=== PATIENT | male | born 1985 | race Caucasian/White ===

== ENCOUNTER 2017-05-24 13:25 | Inpatient (IN) | payer MEDICARE, MEDICAID ==
[~2017-05-24] VITALS: Ht 177.8 cm; Wt 113.4 kg
[~2017-05-24 13:25] MED LIST: ADDERALL10 MG PO; AVPAK AZITHROM250 MG PO; COGENTIN0.5 MG PO; Effexor25 MG PO; GEODON20 MG PO; GEODON40 MG PO; HALDOL PO; KLONOPIN1 MG PO; KLONOPIN2 MG PO; NKHM; PRILOSEC20 M1 PO; RISPERDAL1 MG PO; SEROQUEL25 MG PO; VISTARIL; XANAX2 MG PO; ZOFRAN ODT4 MG SL; [UNRECOGNIZED DRUG - OTHER]
[2017-05-24 13:30] VITALS: BP 168/92
--- NOTE | 2017-05-24 14:40 | NUR ---
PACING AROUND ROOM. GUARDIAN IN ROOM.
[2017-05-24 15:00] LABS: BILIRUBIN NEGATIVE (NEGATIVE); BLOOD TRACE-LYSED (NEGATIVE); CLARITY CLEAR (CLEAR); COLOR YELLOW (YELLOW); GLUCOSE NEGATIVE (NEGATIVE); KETONE NEGATIVE (NEGATIVE); LEUKO ESTERASE NEGATIVE (NEGATIVE); NITRITE NEGATIVE (NEGATIVE); PH 5.5 (5.0-9.0); SPECIFIC GRAVITY <= 1.005 (1.005-1.030); UROBILINOGEN 0.2 E.U./dl (0.2-1.0)
[2017-05-24 15:00] LABS: BASO # 0.1 10*3/uL (0.0-0.1); BASO % 1.2 % (0.0-1.0); EOS # 0.3 10*3/uL (0.0-0.4); EOS % 3.1 % (1.0-4.0); HEMATOCRIT 44.4 % (42.0-52.0); HEMOGLOBIN 15.2 g/dl (14.0-18.0); LYMPH # 2.9 10*3/uL (1.3-4.4); MEAN CELL VOLUME 87.6 fl (80.0-94.0); MEAN CORPUSCULAR HGB CONC 34.2 g/dl (33.0-37.0); MEAN PLATELET VOLUME 9.7 fl (9.6-12.3); MONO # 0.5 10*3/uL (0.1-1.0); MONO % 5.8 % (3.0-9.0); NEUT # 4.4 10*3/uL (2.3-7.9); NEUT % 53.7 % (47.0-73.0); PLATELET COUNT AUTOMATED 246 10*3/uL (130-400); RED BLOOD COUNT 5.07 10*6/uL (4.50-5.90); RED CELL DISTRI WIDTH 14.1 % (0-14.5); WHITE BLOOD COUNT 8.2 10*3/uL (4.8-10.8)
[2017-05-24 15:05] LABS: BACTERIA TRACE; EPITHELIAL CELLS 0-2; RBC 0-2 rbc/hpf (0-2); WBC 0-2 wbc/hpf (0-5)
[2017-05-24 15:09] LABS: URINE AMPHETAMINES < 1000 (1000ng/ml); URINE BARBITURATES < 200 (200ng/ml); URINE BENZODIAZEPINES < 200 (200ng/ml); URINE CANNABINOIDS (THC) < 50 (50ng/ml); URINE COCAINE < 300 (300ng/ml); URINE METHADONE < 300 (300ng/ml); URINE OPIATES < 300 (300ng/ml)
[2017-05-24 15:09] LABS: ACT PARTIAL THROMBO TIME 26.7 SECONDS (20.8-31.5)
[2017-05-24 15:10] LABS: URINE PHENCYCLIDINE < 25 (25ng/ml)
[2017-05-24 15:16] LABS: ALKALINE PHOSPHATASE 106 U/L (45-117); BUN 13 mg/dl (7-24); CHLORIDE 105 mmol/L (98-107); CREATININE 1.23 mg/dL (0.70-1.30); LIPASE 141 U/L (73-393); MAGNESIUM 2.2 mg/dL (1.5-2.1); POTASSIUM 4.4 mmol/L (3.5-5.1); SGOT/AST 77 IU/L (3-35); SGPT/ALT 71 U/L (12-78); SODIUM 140 mmol/L (136-145); TOTAL PROTEIN 7.4 gm/dL (6.4-8.2)
[2017-05-24 15:18] LABS: ACETAMINOPHEN (TYLENOL) < 2.0 ug/ml (10-30); CKMB 6.5 ng/ml (0.5-3.6); ETHYL ALCOHOL < 3.0 mg/dl (<3); TROPONIN I < 0.015 ng/ml (<0.045)
[2017-05-24 15:30] LABS: CPK 1354 U/L (39-308)
--- NOTE | 2017-05-24 16:14 | NUR ---
PT VISITING WITH FIRE ALARM TECHNICIAN. DR CONNOR AT BEDSIDE.
[2017-05-24 17:45] VITALS: BP 124/72
--- NOTE | 2017-05-24 18:01 | NUR ---
32 year old M admitted to room # 520 for stabilization. Reports an addiction to [place] last used THIS MORNING . Compliant with admission procedure. Patient DISPLAYS SYMPTOMS OF anxiety, is unable to sit still, looks about room, HOWERVER able to focus eyes on nurse during interview. See assessment forms for additional information about patient status. DR GIRARD IN TO SEE PT.
--- NOTE | 2017-05-24 18:19 | NUR ---
DR PONCE IN TO SEE PT. PT WANDERING AROUND IN ROOM, COOPERATIVE. FLAT AFFECT.
[2017-05-24] MEDS ORDERED: KLONOPIN1 M1 PO ×2 (18:26)
[2017-05-24] MEDS ORDERED: ZANTAC 150150 MG PO (18:27)
[2017-05-24] MEDS ORDERED: ZYPREXA20 M1 PO (18:28)
[2017-05-24] MEDS ORDERED: HALDOL5 MG PO (18:28)
[2017-05-24] MEDS ORDERED: HALDOL20 MG PO (18:30)
[2017-05-24] MEDS ORDERED: COGENTIN0.5 MG PO (18:30)
--- NOTE | 2017-05-24 18:33 | NUR ---
PTS MED LIST UPDATED WITH [facility], HOWEVER PT IS ADAMANT THAT HE DOES NOT TAKE MOST OF THESE MEDS. PHONED DR VAUGHNOLONES OFFICE TO VERIFY THAT PT IS INDEED ORDERED THESE MEDS. ATTEMPTED TO REACH DR MONTAGUE TO INFORM THAT MED REC MAY NOT BE CORRECT EVEN THOUGH VERIFIED THRU PHARMACY.
--- NOTE | 2017-05-24 19:15 | NUR ---
ERICK MONTANEZ NOTIFIED OF PTS HX OF SUICIDAL ATTEMPTS & FACT THAT PT IS DENYING ANY SUICIAL OR HOMICIDAL THOUGHTS AT PRESENT TIME.
--- NOTE | 2017-05-24 19:18 | NUR ---
SPOKE WITH STAFF AT DR RINALDI'S OFFICE WHO INFORM THIS RN THAT PT IS NO LONGER A PT OF DR MARTINEZ & THAT WE SHOULD CALL [facility] IN [facility]. [phone]. ATTEMPTED TO CALL NUMBER WITH NO SUCCESS.
--- NOTE | 2017-05-24 19:56 | NUR ---
PT GIVEN NICOTROL INHALER PER HIS REQUEST, SEE EMAR. IV INFUSING WITH NO PROBLEM. CALL LIGHT IN REACH. IV started left hand with #22 angiocath after 1 attempts. The IV site was prepped with Chloraprep. Heparin lock attached. IV solution MVI infusing at 150 cc/hr. Sterile dressing applied. Patient tolerated precedure well. Procedure performed according to [facility] policy & procedure. SILVIA BENDER
[2017-05-24 20:00] VITALS: BP 139/98
--- NOTE | 2017-05-24 20:50 | NUR ---
PT MEDICATED WITH NICOTROL INHALER PER HIS REQUEST. SEE EMAR. CALL LIGHT IN REACH.
--- NOTE | 2017-05-24 21:13 | NUR ---
CALLED DR. WOODS MADE AWARE OF CONSULT. HE WILL SEE HIM TOMORROW.
--- NOTE | 2017-05-24 22:05 | NUR ---
PT REQUESTING NICOTROL INHALER, SEE EMAR. ALSO MEDICATED WITH TRAZADONE FOR SLEEP. CALL LIGHT IN REACH.
--- NOTE | 2017-05-24 23:00 | NUR ---
PT TOLERATED ROUTINE LIBRIUM PO PER PRN ORDER, SEE EMAR. NO C/O AT THIS TIME. CALL LIGHT IN REACH.
[2017-05-25] VITALS: BP 137/82
--- NOTE | 2017-05-25 02:48 | NUR ---
PT C/O WITHDRAWAL SYMPTOMS. C/O ANXIETY AND ACHES ALL OVER AND ANXIETY. MEDICATED WITH ZOFRAN, TRAZADONE,ROBAXIN, AND VISTARIL PER PRN ORDER, SEE EMAR. CALL LIGHT IN REACH.
--- NOTE | 2017-05-25 03:50 | NUR ---
RESTING IN BED ON RIGHT SIDE WITH EYES CLOSED. MEDICATION SEEMS TO BE EFFECTIVE. CALL LIGHT IN REACH.
--- NOTE | 2017-05-25 06:00 | NUR ---
PT TOELRATED ROUTINE LIBRIUM SEE EMAR. ALSO REQUESTING NICOTROL INHALER. CALL LIGHT IN REACH.
[2017-05-25 08:00] VITALS: BP 130/80
--- NOTE | 2017-05-25 08:47 | NUR ---
PATIENT ALERT AND ORIENTED X3 SPHERES AND WISHES TO SIGN HIMSELF OUT AMA. PAPER SIGNED. HEPLOCK DISCONTINUED. PT LEFT THE FLOOR. THE PATIENT'S MOTHER THEN CALLED AND STATED SHE IS HIS GUARDIAN AND SHE WANTS HIM TO STAY AFTER HE TOLD HER HE WAS LEAVING. SHE STATED SHE COULD FAX OVER PAPERWORK STATING THIS BUT I LET HER KNOW HE JUST LEFT THE FLOOR. PT STATED HE LIVES A "COUPLE BLOCKS AWAY AND WAS GOING TO WALK HOME."
--- NOTE | 2017-05-25 08:50 | NUR ---
DR BLACK AND NURSING SAS ADMINISTRATOR NOTIFIED THAT PATIENT SIGNED OUT AGAINST MEDICAL ADVICE.
== END 2017-05-25 08:47 | disposition left against medical advice (07) | DRG 894 ==
LOC: ED 13:25 → EDHOLD 16:39 → 5E 16:39 → EDHOLD 16:39 → 5E 17:05
PROVIDERS: Emergency Medicine; ADMIT Internal Medicine
DX: F13.20 Sedative, hypnotic or anxiolytic dependence, uncomplicated (principal); E83.41 Hypermagnesemia; F20.0 Paranoid schizophrenia; Z53.21 Procedure and treatment not carried out due to patient leaving prior to being seen by health care provider; F17.210 Nicotine dependence, cigarettes, uncomplicated; R74.0 Nonspecific elevation of levels of transaminase and lactic acid dehydrogenase [LDH]; Z71.6 Tobacco abuse counseling; Z79.899 Other long term (current) drug therapy; Z72.89 Other problems related to lifestyle

== ENCOUNTER 2018-06-15 11:57 | Emergency (ER) | payer MEDICARE, MEDICAID ==
[~2018-06-15 11:57] MED LIST changes: +HALDOL20 MG PO; +HALDOL5 MG PO; +KLONOPIN1 M1 PO; +ZANTAC 150150 MG PO; +ZYPREXA20 M1 PO
[2018-06-15 12:22] LABS: BILIRUBIN NEGATIVE (NEGATIVE); BLOOD TRACE-INTACT (NEGATIVE); CLARITY CLEAR (CLEAR); COLOR STRAW (YELLOW); GLUCOSE NEGATIVE (NEGATIVE); KETONE NEGATIVE (NEGATIVE); LEUKO ESTERASE NEGATIVE (NEGATIVE); NITRITE NEGATIVE (NEGATIVE); SPECIFIC GRAVITY <= 1.005 (1.005-1.030); UROBILINOGEN 0.2 E.U./dl (0.2-1.0)
[2018-06-15 12:29] LABS: URINE AMPHETAMINES < 1000 (1000ng/ml); URINE BARBITURATES < 200 (200ng/ml); URINE BENZODIAZEPINES < 200 (200ng/ml); URINE CANNABINOIDS (THC) < 50 (50ng/ml); URINE COCAINE < 300 (300ng/ml); URINE METHADONE < 300 (300ng/ml); URINE OPIATES < 300 (300ng/ml)
[2018-06-15 12:30] LABS: EPITHELIAL CELLS 0-2; RBC 0-2 rbc/hpf (0-2); WBC 0-2 wbc/hpf (0-5)
[2018-06-15 12:31] LABS: URINE PHENCYCLIDINE < 25 (25ng/ml)
[2018-06-15 12:41] LABS: BASO % 0.3 % (0.0-1.0); EOS # 0.1 10*3/uL (0.0-0.4); EOS % 0.3 % (1.0-4.0); HEMATOCRIT 45.5 % (42.0-52.0); HEMOGLOBIN 15.9 g/dl (14.0-18.0); LYMPH # 1.6 10*3/uL (1.3-4.4); LYMPH % 10.3 % (27.0-41.0); MEAN CELL VOLUME 83.8 fl (80.0-94.0); MEAN CORPUSCULAR HGB 29.3 pg (27.0-31.0); MEAN CORPUSCULAR HGB CONC 34.9 g/dl (33.0-37.0); MEAN PLATELET VOLUME 8.9 fl (9.6-12.3); MONO # 0.7 10*3/uL (0.1-1.0); MONO % 4.7 % (3.0-9.0); NEUT # 13.2 10*3/uL (2.3-7.9); NEUT % 84.1 % (47.0-73.0); PLATELET COUNT AUTOMATED 271 10*3/uL (130-400); RED BLOOD COUNT 5.43 10*6/uL (4.50-5.90); RED CELL DISTRI WIDTH 14.2 % (0-14.5); WHITE BLOOD COUNT 15.6 10*3/uL (4.8-10.8)
[2018-06-15 12:57] LABS: ALBUMIN 4.2 gm/dl (3.1-4.5); ALKALINE PHOSPHATASE 102 U/L (45-117); BUN 11 mg/dl (7-24); CHLORIDE 98 mmol/L (98-107); POTASSIUM 3.8 mmol/L (3.5-5.1); SGOT/AST 36 IU/L (3-35); SGPT/ALT 42 U/L (12-78); SODIUM 133 mmol/L (136-145); TOTAL PROTEIN 7.6 gm/dL (6.4-8.2)
[2018-06-15 12:59] LABS: ACETAMINOPHEN (TYLENOL) < 2.0 ug/ml (10-30)
== END 2018-06-15 20:43 | disposition home health service (06) ==
LOC: ED 11:57
PROVIDERS: Nurse Practitioner Family
DX: F20.0 Paranoid schizophrenia (principal); R45.851 Suicidal ideations; F41.9 Anxiety disorder, unspecified; F17.200 Nicotine dependence, unspecified, uncomplicated; Z79.899 Other long term (current) drug therapy

== ENCOUNTER 2019-04-18 11:31 | Emergency (ER) | payer MEDICARE ==
[~2019-04-18] VITALS: Ht 177.8 cm; Wt 102.1 kg
[2019-04-18 14:00] LABS: BASO # 0.1 10*3/uL (0.0-0.1); BASO % 0.5 % (0.0-1.0); EOS # 0.1 10*3/uL (0.0-0.4); EOS % 0.8 % (1.0-4.0); HEMATOCRIT 50.3 % (42.0-52.0); HEMOGLOBIN 16.9 g/dl (14.0-18.0); LYMPH # 2.1 10*3/uL (1.3-4.4); LYMPH % 20.1 % (27.0-41.0); MEAN CELL VOLUME 87.5 fl (80.0-94.0); MEAN CORPUSCULAR HGB 29.4 pg (27.0-31.0); MEAN CORPUSCULAR HGB CONC 33.6 g/dl (33.0-37.0); MEAN PLATELET VOLUME 9.7 fl (9.6-12.3); MONO # 0.6 10*3/uL (0.1-1.0); MONO % 5.4 % (3.0-9.0); NEUT # 7.5 10*3/uL (2.3-7.9); NEUT % 72.9 % (47.0-73.0); PLATELET COUNT AUTOMATED 302 10*3/uL (130-400); RED BLOOD COUNT 5.75 10*6/uL (4.50-5.90); RED CELL DISTRI WIDTH 12.8 % (0-14.5); WHITE BLOOD COUNT 10.2 10*3/uL (4.8-10.8)
[2019-04-18 14:09] LABS: BILIRUBIN NEGATIVE (NEGATIVE); BLOOD 1+ (NEGATIVE); CLARITY CLEAR (CLEAR); COLOR YELLOW (YELLOW); GLUCOSE NEGATIVE (NEGATIVE); KETONE NEGATIVE (NEGATIVE); LEUKO ESTERASE NEGATIVE (NEGATIVE); NITRITE NEGATIVE (NEGATIVE); SPECIFIC GRAVITY <= 1.005 (1.005-1.030); UROBILINOGEN 0.2 E.U./dl (0.2-1.0)
[2019-04-18 14:15] LABS: BACTERIA TRACE; EPITHELIAL CELLS 0-2; WBC 0-2 wbc/hpf (0-5)
[2019-04-18 14:17] LABS: URINE AMPHETAMINES < 1000 (1000ng/ml); URINE BARBITURATES < 200 (200ng/ml); URINE BENZODIAZEPINES < 200 (200ng/ml); URINE CANNABINOIDS (THC) < 50 (50ng/ml); URINE COCAINE < 300 (300ng/ml); URINE METHADONE < 300 (300ng/ml); URINE OPIATES < 300 (300ng/ml)
[2019-04-18 14:18] LABS: ALBUMIN 4.6 gm/dl (3.1-4.5); ALKALINE PHOSPHATASE 95 U/L (45-117); BUN 13 mg/dl (7-24); CHLORIDE 107 mmol/L (98-107); CREATININE 1.04 mg/dL (0.70-1.30); SGOT/AST 35 IU/L (3-35); SGPT/ALT 67 U/L (12-78); SODIUM 141 mmol/L (136-145); TOTAL PROTEIN 7.7 gm/dL (6.4-8.2)
[2019-04-18 14:20] LABS: URINE PHENCYCLIDINE < 25 (25ng/ml)
[2019-04-18 14:20] LABS: ACETAMINOPHEN (TYLENOL) < 5.0 ug/ml (10-30); ETHYL ALCOHOL < 3.0 mg/dl (<3)
== END 2019-04-18 23:04 | disposition home health service (06) ==
LOC: ED 11:31
PROVIDERS: Physician Assistant
DX: F25.9 Schizoaffective disorder, unspecified (principal); F32.9 Major depressive disorder, single episode, unspecified; F19.10 Other psychoactive substance abuse, uncomplicated; F17.200 Nicotine dependence, unspecified, uncomplicated; Z79.899 Other long term (current) drug therapy

== ENCOUNTER 2019-08-04 20:15 | Emergency (ER) | payer MEDICARE ==
[~2019-08-04] VITALS: Ht 180.3 cm; Wt 102.1 kg
[2019-08-04 20:36] LABS: BASO # 0.1 10*3/uL (0.0-0.1); BASO % 0.6 % (0.0-1.0); EOS # 0.2 10*3/uL (0.0-0.4); EOS % 2.4 % (1.0-4.0); HEMATOCRIT 48.7 % (42.0-52.0); HEMOGLOBIN 16.4 g/dl (14.0-18.0); LYMPH # 3.4 10*3/uL (1.3-4.4); LYMPH % 34.5 % (27.0-41.0); MEAN CELL VOLUME 88.5 fl (80.0-94.0); MEAN CORPUSCULAR HGB 29.8 pg (27.0-31.0); MEAN CORPUSCULAR HGB CONC 33.7 g/dl (33.0-37.0); MEAN PLATELET VOLUME 9.6 fl (9.6-12.3); MONO # 0.7 10*3/uL (0.1-1.0); MONO % 7.1 % (3.0-9.0); NEUT # 5.5 10*3/uL (2.3-7.9); NEUT % 55.2 % (47.0-73.0); PLATELET COUNT AUTOMATED 304 10*3/uL (130-400); RED CELL DISTRI WIDTH 12.3 % (0-14.5); WHITE BLOOD COUNT 9.9 10*3/uL (4.8-10.8)
[2019-08-04 20:53] LABS: ALBUMIN 4.2 gm/dl (3.1-4.5); ALKALINE PHOSPHATASE 94 U/L (45-117); BUN 14 mg/dl (7-24); CHLORIDE 108 mmol/L (98-107); CREATININE 1.11 mg/dL (0.70-1.30); POTASSIUM 3.6 mmol/L (3.5-5.1); SGOT/AST 35 IU/L (3-35); SGPT/ALT 42 U/L (12-78); SODIUM 141 mmol/L (136-145); TOTAL PROTEIN 7.4 gm/dL (6.4-8.2)
[2019-08-04 21:15] LABS: ACETAMINOPHEN (TYLENOL) < 5.0 ug/ml (10-30)
[2019-08-04 22:04] LABS: BILIRUBIN NEGATIVE (NEGATIVE); BLOOD 1+ (NEGATIVE); CLARITY CLEAR (CLEAR); COLOR YELLOW (YELLOW); GLUCOSE NEGATIVE (NEGATIVE); KETONE NEGATIVE (NEGATIVE); LEUKO ESTERASE NEGATIVE (NEGATIVE); NITRITE NEGATIVE (NEGATIVE); UROBILINOGEN 0.2 E.U./dl (0.2-1.0)
[2019-08-04 22:26] LABS: URINE AMPHETAMINES < 1000 (1000ng/ml); URINE BARBITURATES < 200 (200ng/ml); URINE BENZODIAZEPINES < 200 (200ng/ml); URINE CANNABINOIDS (THC) < 50 (50ng/ml); URINE COCAINE < 300 (300ng/ml); URINE METHADONE < 300 (300ng/ml); URINE OPIATES < 300 (300ng/ml)
[2019-08-04 22:30] LABS: URINE PHENCYCLIDINE < 25 (25ng/ml)
== END 2019-08-05 16:51 | disposition home health service (06) ==
LOC: ED 20:15
PROVIDERS: Emergency Medicine
DX: F25.9 Schizoaffective disorder, unspecified (principal); F32.9 Major depressive disorder, single episode, unspecified; F13.20 Sedative, hypnotic or anxiolytic dependence, uncomplicated; F17.200 Nicotine dependence, unspecified, uncomplicated; Z79.899 Other long term (current) drug therapy

== ENCOUNTER 2019-10-21 07:51 | Emergency (ER) | payer MEDICARE ==
[2019-10-21] MEDS ORDERED: BUSPAR15 MG PO (09:34)
[2019-10-21] MEDS ORDERED: DEPAKOTE500 MG PO (09:34)
== END 2019-10-21 09:52 | disposition home or self-care (01) ==
LOC: ED 07:51
DX: J40 Bronchitis, not specified as acute or chronic (principal); F32.9 Major depressive disorder, single episode, unspecified; Z76.0 Encounter for issue of repeat prescription; Z79.899 Other long term (current) drug therapy

== ENCOUNTER 2020-01-09 10:57 | Emergency (ER) | payer MEDICARE ==
[~2020-01-09] VITALS: Wt 98.0 kg
[~2020-01-09 10:57] MED LIST changes: +BUSPAR15 MG PO; +DEPAKOTE500 MG PO
[2020-01-09 11:31] LABS: BASO # 0.1 10*3/uL (0.0-0.1); BASO % 0.6 % (0.0-1.0); EOS # 0.1 10*3/uL (0.0-0.4); EOS % 0.9 % (1.0-4.0); HEMATOCRIT 47.4 % (42.0-52.0); LYMPH # 2.5 10*3/uL (1.3-4.4); LYMPH % 26.3 % (27.0-41.0); MEAN CELL VOLUME 87.6 fl (80.0-94.0); MEAN CORPUSCULAR HGB 29.8 pg (27.0-31.0); MEAN PLATELET VOLUME 9.6 fl (9.6-12.3); MONO # 0.7 10*3/uL (0.1-1.0); MONO % 7.1 % (3.0-9.0); NEUT # 6.2 10*3/uL (2.3-7.9); NEUT % 64.8 % (47.0-73.0); PLATELET COUNT AUTOMATED 258 10*3/uL (130-400); RED BLOOD COUNT 5.41 10*6/uL (4.50-5.90); RED CELL DISTRI WIDTH 12.9 % (0-14.5); WHITE BLOOD COUNT 9.5 10*3/uL (4.8-10.8)
[2020-01-09 11:45] LABS: ALBUMIN 4.1 gm/dl (3.1-4.5); ALKALINE PHOSPHATASE 85 U/L (45-117); BUN 17 mg/dl (7-24); CHLORIDE 104 mmol/L (98-107); CREATININE 1.03 mg/dL (0.70-1.30); SGOT/AST 41 IU/L (3-35); SGPT/ALT 44 U/L (12-78); SODIUM 137 mmol/L (136-145)
[2020-01-09 11:46] LABS: ACETAMINOPHEN (TYLENOL) < 5.0 ug/ml (10-30); ETHYL ALCOHOL < 3.0 mg/dl (<3)
[2020-01-09 12:52] LABS: BILIRUBIN NEGATIVE (NEGATIVE); CLARITY CLEAR (CLEAR); COLOR YELLOW (YELLOW); GLUCOSE NEGATIVE (NEGATIVE); KETONE NEGATIVE (NEGATIVE)
[2020-01-09 12:53] LABS: BLOOD TRACE-INTACT (NEGATIVE); LEUKO ESTERASE NEGATIVE (NEGATIVE); NITRITE NEGATIVE (NEGATIVE); SPECIFIC GRAVITY 1.005 (1.005-1.030); URINE AMPHETAMINES < 1000 (1000ng/ml); URINE BARBITURATES < 200 (200ng/ml); URINE BENZODIAZEPINES < 200 (200ng/ml); URINE CANNABINOIDS (THC) < 50 (50ng/ml); URINE COCAINE < 300 (300ng/ml); URINE METHADONE < 300 (300ng/ml); URINE OPIATES < 300 (300ng/ml); UROBILINOGEN 0.2 E.U./dl (0.2-1.0); WBC 0-2 wbc/hpf (0-5)
[2020-01-09 12:54] LABS: URINE PHENCYCLIDINE < 25 (25ng/ml)
== END 2020-01-13 09:20 | disposition home health service (06) ==
LOC: ED 10:57
PROVIDERS: Physician Assistant
DX: F23 Brief psychotic disorder (principal); F25.9 Schizoaffective disorder, unspecified; F17.200 Nicotine dependence, unspecified, uncomplicated

== ENCOUNTER → 2021-02-01 | Outpatient (CLI) | payer MEDICARE ==
[2021-02-01 10:39] LABS: CHOLESTEROL 177 mg/dL (<200); LDL CHOLESTEROL 101 mg/dL (9-159); TRIGLYCERIDES 226 mg/dl (<150)
== END | disposition home or self-care (01) ==
LOC: LAB 09:53
PROVIDERS: ATTEND Psychiatry & Neurology Psychiatry
DX: Z51.81 Encounter for therapeutic drug level monitoring (principal); Z79.899 Other long term (current) drug therapy

== ENCOUNTER → 2022-05-30 | Outpatient (CLI) | payer MEDICARE ==
[2022-05-30 08:41] LABS: BASO % 0.6 % (0.0-1.0); EOS # 0.2 10*3/uL (0.0-0.4); EOS % 3.2 % (1.0-4.0); LYMPH % 29.1 % (27.0-41.0); MONO # 0.5 10*3/uL (0.1-1.0); MONO % 7.7 % (3.0-9.0); NEUT # 4.1 10*3/uL (2.3-7.9); WHITE BLOOD COUNT 6.9 10*3/uL (4.8-10.8)
[2022-05-30 09:03] LABS: CHOLESTEROL 158 mg/dL (<200); TRIGLYCERIDES 149 mg/dl (<150)
[2022-05-30 09:05] LABS: LDL CHOLESTEROL 95 mg/dL (9-159)
== END | disposition home or self-care (01) ==
LOC: LAB 08:15
PROVIDERS: ATTEND Psychiatry & Neurology Psychiatry
DX: Z79.899 Other long term (current) drug therapy (principal); Z51.81 Encounter for therapeutic drug level monitoring

== ENCOUNTER → 2023-10-16 | Outpatient (CLI) | payer MEDICARE ==
[2023-10-16 08:23] LABS: BASO # 0.1 10*3/uL (0.0-0.1); BASO % 0.8 % (0.0-1.0); EOS # 0.1 10*3/uL (0.0-0.4); EOS % 2.2 % (1.0-4.0); HEMATOCRIT 50.4 % (42.0-52.0); LYMPH # 2.4 10*3/uL (1.3-4.4); LYMPH % 37.8 % (27.0-41.0); MEAN CELL VOLUME 88.1 fl (80.0-94.0); MEAN CORPUSCULAR HGB 29.4 pg (27.0-31.0); MEAN CORPUSCULAR HGB CONC 33.3 g/dl (33.0-37.0); MEAN PLATELET VOLUME 9.4 fl (9.6-12.3); MONO # 0.4 10*3/uL (0.1-1.0); MONO % 6.8 % (3.0-9.0); NEUT # 3.4 10*3/uL (2.3-7.9); NEUT % 52.1 % (47.0-73.0); PLATELET COUNT AUTOMATED 301 10*3/uL (130-400); RED BLOOD COUNT 5.72 10*6/uL (4.50-5.90); RED CELL DISTRI WIDTH 14.2 % (0-14.5); WHITE BLOOD COUNT 6.5 10*3/uL (4.8-10.8)
[2023-10-16 09:01] LABS: CHOLESTEROL 160 mg/dL (<200); LDL CHOLESTEROL 91 mg/dL (9-159); TRIGLYCERIDES 212 mg/dl (<150)
== END | disposition home or self-care (01) ==
LOC: LAB 08:09
PROVIDERS: ATTEND Psychiatry & Neurology Psychiatry
DX: Z51.81 Encounter for therapeutic drug level monitoring (principal); Z79.899 Other long term (current) drug therapy

== ENCOUNTER → 2024-12-17 | Outpatient (CLI) | payer MEDICARE ==
[2024-12-17 08:46] LABS: BASO # 0.1 10*3/uL (0.0-0.1); BASO % 1.3 % (0.0-1.0); EOS # 0.2 10*3/uL (0.0-0.4); EOS % 3.5 % (1.0-4.0); HEMATOCRIT 44.5 % (42.0-52.0); MEAN CELL VOLUME 86.6 fl (80.0-94.0); MEAN CORPUSCULAR HGB 28.8 pg (27.0-31.0); MEAN CORPUSCULAR HGB CONC 33.3 g/dl (33.0-37.0); MONO # 0.5 10*3/uL (0.1-1.0); MONO % 7.7 % (3.0-9.0); NEUT # 3.4 10*3/uL (2.3-7.9); NEUT % 55.9 % (47.0-73.0); PLATELET COUNT AUTOMATED 277 10*3/uL (130-400); RED BLOOD COUNT 5.14 10*6/uL (4.50-5.90)
[2024-12-17 08:57] LABS: CHOLESTEROL 162 mg/dL (<200); LDL CHOLESTEROL 102 mg/dL (9-159); TRIGLYCERIDES 168 mg/dl (<150)
== END | disposition home or self-care (01) ==
LOC: LAB 08:03
PROVIDERS: ATTEND Psychiatry & Neurology Psychiatry
DX: Z51.81 Encounter for therapeutic drug level monitoring (principal); Z79.899 Other long term (current) drug therapy